=== PATIENT | female | born 1990 | race Caucasian/White ===

== ENCOUNTER 2017-01-06 09:00 | Inpatient (IN) | payer OTHER ==
[~2017-01-06] VITALS: Ht 152.4 cm; Wt 63.6 kg
[2017-01-06 09:42] VITALS: BP 103/64; PULSE 99; RESP 16; Ht 152.4 cm; Wt 63.6 kg
--- NOTE | 2017-01-06 11:53 | TRIAGE ---
OB Triage Datetime Report Generated by CPN: 01/06/2017 11:53 Datetime: 01/06/2017 10:30 Labor Evaluation Frequency: irreg Monitor Mode: External Duration (sec)2399: 40-120 Quality: Mild Pattern: Normal: <= 5 Contractions in 10 Minutes Resting Tone [place]: Relaxed Heart Rate FHR Baseline Rate: 145 Monitor Mode: External US Variability: Moderate 6-25 bpm Accelerations: 15X15 Decelerations: None Category: Category I Pain Assessment Pain Scale: 2 Pain Presence: Intermittent Pain Type: Contraction Pain Location: Abdomen Pain Goal: 3 Datetime: 01/06/2017 09:41 Maternal Assessment Level of Consciousness: Fully Conscious DTR's/Clonus: DTRs 2+; No Clonus Headache: Denies Blurred Vision: No Respiratory Effort: Unlabored; Regular Rhythm; Equal Expansion Breath Sounds, Left: Clear and Equal Breath Sounds, Right: Clear and Equal Nausea/Vomiting: Denies RUQ Epigastric Pain: Denies Lower Extremities Edema: None Degree: None Upper Extremities Edema: None Degree: None Facial Edema: None Fall Risk Assessment History of Falling: (0) No Secondary Diagnosis: (0) No Ambulatory Aid: (0) Bedrest/Nurse Assist IV Therapy: (0) No Gait: (0) Normal/Bedrest/Immobile Mental Status: (0) Oriented to Own Ability Fall Score: 0 Fall Risk Score Definition: No Risk: No action required Datetime: 01/06/2017 09:36 Time of Arrival: 01/06/2017 09:14 EGA: 40.3 Arrived By: Ambulatory Arrived From: Home Chief Complaint: Movement: Present Contractions: Irregular Rupture of Membranes: Denies Vaginal Bleeding: None Vaginal Discharge: Denies Recent Sexual Intercouse: Denies Abdominal Trauma: Not Applicable Patient Complaints: None Time Provider Notified: 01/06/2017 09:25 Provider Notified: Initial Plan: maikelt
[2017-01-06] MEDS ORDERED: BUTORPHANOL 2 MG INJ IV PRN (12:00)
[2017-01-06] MEDS ORDERED: LIDOCAINE 1% (MPF) 30 ML INJ INJ PRN (12:00)
[2017-01-06] MEDS ORDERED: METHYLERGONOVINE 0.2 MG INJ IM PRN (12:00)
[2017-01-06] MEDS ORDERED: OXYTOCIN 30 UNITS/LR 500 ML IV PRN (12:00)
[2017-01-06] MEDS ORDERED: OXYTOCIN 30 UNITS/LR 500 ML IV SCH ×2 (12:00)
[2017-01-06] MEDS ORDERED: CARBOPROST 250 MCG INJ IM PRN (12:00)
[2017-01-06] MEDS ORDERED: MISOPROSTOL 200 MCG TAB PR PRN (12:00)
[2017-01-06] MEDS: LACTATED RINGER'S 1,000 ML IV SCH ×2 (12:13→20:06)
[2017-01-06] MEDS ORDERED: DINOPROSTONE 10 MG VAG SUPP VAG ONE (12:30)
[2017-01-06 12:42] LABS: ADD SCAN DIFF NO
[2017-01-06 12:46] LABS: ABNORMAL IP MESSAGE 1; HEMATOCRIT 36.9 % (37.0-47.0); HEMOGLOBIN 12.6 g/dl (12.0-16.0); MEAN CORPUSCULAR HEMOGLOBIN 32.4 pg (29.0-33.0); MEAN CORPUSCULAR HGB CONC 34.1 g/dl (32.0-37.0); MEAN CORPUSCULAR VOLUME 94.9 fl (82.0-101.0); MEAN PLATELET VOLUME 10.3 fl (7.4-10.4); PLATELET COUNT 175 10^3/UL (140-415); RED BLOOD COUNT 3.89 10^6/ul (4.20-5.40); RED CELL DISTRIBUTION WIDTH 12.8 % (11.5-14.5); WHITE BLOOD COUNT 8.9 10^3/ul (4.8-10.8)
[2017-01-06 12:59] LABS: INR 0.85; PROTIME 11.6 Sec (12.2-14.2); PT RATIO 0.9
[2017-01-06 13:00] LABS: PARTIAL THROMBOPLASTIN TIME 23.2 Sec (25.0-35.0)
[2017-01-06 13:48] LABS: LYMPHOCYTES # 1.2 10^3/ul (0.8-2.9); MONOCYTE # 0.7 10^3/ul (0.3-0.9); MYELOCYTES # 0.1; NEUTROPHIL # 6.6 10^3/ul (1.6-7.5)
[2017-01-06] MEDS ORDERED: LACTATED RINGER'S 1,000 ML IV PRN (14:00)
[2017-01-07] MEDS: LACTATED RINGER'S 1,000 ML IV SCH ×2 (03:35→09:31)
[2017-01-07] MEDS ORDERED: FENTAnyl 2MCG/ML-ROPIV 0.2% 100 ML ONE (08:21)
[2017-01-07] MEDS ORDERED: NALOXONE (0.4 MG/ML) INJ IV PRN ×2 (09:00)
[2017-01-07] MEDS ORDERED: DIPHENHYDRAMINE 50 MG INJ IV PRN ×2 (09:00)
[2017-01-07] MEDS ORDERED: FENTAnyl 2MCG/ML-ROPIV 0.2% 100 ML BAG EPI SCH ×2 (09:00)
[2017-01-07] MEDS ORDERED: ONDANSETRON 4 MG INJ IV PRN ×3 (09:00→18:30)
[2017-01-07] MEDS ORDERED: OXYTOCIN 30 UNITS/LR 500 ML IV SCH (09:00)
[2017-01-07] MEDS ORDERED: EPHEDrine SULFATE 50 MG/5 ML SYG IV PRN ×2 (09:00)
--- NOTE | 2017-01-07 16:29 | HP ---
Date/Time of Note Date/Time of Note DATE: 01/07/17 TIME: 16:17 OB - History Hx of Present Free Text/Dictation 26 years old white female 2 para/0 admitted to [facility] at 40 weeks and 3 days for induction of labor pelvic examination on admission cervix 1 cm dilated 50% effaced vertex at -3 station plan of Cervidil in induction was discussed with the patient also risks and complication patient agreed with induction This patient has been under the care of the [facility] and her was not complicated with gestational diabetes -induced hypertension or any other serious surgical or medical condition 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 Rubella: immune RPR/VDRL: Negative GBS Status: Negative HBsAG: Negative OB Admission Exam Vital Signs Vital Signs Vital Signs Date Time Temp Pulse Resp B/P Pulse Ox O2 Delivery O2 Flow Rate FiO2 01/06/17 09:42 98.1 99 16 103/64 Physical Exam HEENT: WNL Heart: Rhythm Normal Lungs: Clear, Equal Abdomen: WNL Extremities: Normal Reflexes: Normal Cervical Dilatation: 1cm Effacement: 50% Station: -3 Heart Rate: 130's Accelerations: Accelerations Present Decelerations: No Decelerations Varibility: Moderate Intensity: Mild Last 72 hours Lab Results CBC & BMP 01/06/17 12:18 OB Assessment/Plan Reason for admission: other (40 weeks 3 days 2 para1 admitted for induction of labor `) Plan: Induction RUTHY BARBOSA MD Jan 07, 2017 16:28
--- NOTE | 2017-01-07 16:34 | LDN ---
Date/Time of Note Date/Time of Note DATE: 01/07/17 TIME: 16:29 Delivery Summary Normal spontaneous vaginal delivery of a baby from OA position shoulders delivered without any difficulties rest of the baby's body followed baby had nuchal cord ,cord clamped after stopped pulsation placenta spontaneous expulsion inspected complete,. Weeks of Gestation 40 weeks 3 Placenta Delivered: Spontaneously Meconium: none Episiotomy: No Perineal laceration: 1 Laceration repair: Left paraurethral laceration, first-degree perineal laceration both repaired with 3-0 chromic catgut Anesthesia type: Epidural Estimated blood loss: 250 Sponge & Needle done & correct: Yes All needle counts correct: Yes Any foreign bodies felt in the: No Problems: Delivery Information Sex Sex: female Apgars 1 Minute: 8 5 Minute: 9 Suctioning Nose & mouth suctioned at donovan: Yes Delee suction performed: No Umbilical Cord Umbilical cord with: 3 Vessels Cord presentations: nuchal cord Cord Blood was obtained: Yes RUTHY BARBOSA MD Jan 07, 2017 16:34
[2017-01-07] MEDS ORDERED: IBUPROFEN 600 MG TAB PO ONE (17:00)
[2017-01-07] MEDS ORDERED: LACTATED RINGER'S 1,000 ML IV* SCH (17:48)
[2017-01-07] MEDS ORDERED: OXYTOCIN 30 UNITS/LR 500 ML IV PRN ×2 (18:00→18:30)
[2017-01-07] MEDS ORDERED: CARBOPROST 250 MCG INJ IM PRN ×2 (18:00→18:30)
[2017-01-07] MEDS ORDERED: METHYLERGONOVINE 0.2 MG INJ IM PRN ×2 (18:00→18:30)
[2017-01-07] MEDS ORDERED: MISOPROSTOL 200 MCG TAB PR PRN ×2 (18:00→18:30)
[2017-01-07] MEDS: LACTATED RINGER'S 1,000 ML IV* SCH (18:08)
[2017-01-07] MEDS: OXYTOCIN 30 UNITS/LR 500 ML IV SCH ×2 (18:08→22:08)
[2017-01-07 18:25] VITALS: BP 120/70; PULSE 70; RESP 19
[2017-01-07] MEDS ORDERED: DIBUCAINE 1% 30 GM OINT PR PRN (18:30)
[2017-01-07] MEDS ORDERED: ACETAMINOPHEN/CODEINE #3 TAB PO PRN ×2 (18:30)
[2017-01-07] MEDS ORDERED: ACETAMINOPHEN 325 MG TAB PO PRN (18:30)
[2017-01-07] MEDS: WITCH HAZEL/GLYCERIN PAD PR PRN (18:37)
[2017-01-07] MEDS: BENZOCAINE 20% 56 ML SPRAY TOP PRN (18:37)
[2017-01-07] MEDS: LANOLIN 7 GM TUBE TOP PRN (18:37)
[2017-01-07 20:00] VITALS: BP 110/67; PULSE 70; RESP 18
[2017-01-07] MEDS: SENNA/DOCUSATE NA (8.6MG/50MG) TAB PO SCH (21:00)
[2017-01-08] MEDS: OXYCODONE/ASPIRIN (4.88/325) TAB PO PRN ×4 (01:37→17:56)
[2017-01-08] MEDS: LACTATED RINGER'S 1,000 ML IV* SCH (02:08)
[2017-01-08] MEDS: IBUPROFEN 600 MG TAB PO SCH ×4 (05:52→19:26)
[2017-01-08 07:23] LABS: ADD SCAN DIFF NO
[2017-01-08 07:32] LABS: BASOPHIL # 0.1 10^3/ul (0.0-0.1); BASOPHILS % 0.5 % (0.0-2.0); EOSINOPHILS # 0.2 10^3/ul (0.0-0.5); EOSINOPHILS % 1.9 % (0.0-7.0); HEMATOCRIT 31.8 % (37.0-47.0); HEMOGLOBIN 10.7 g/dl (12.0-16.0); LYMPHOCYTES # 1.9 10^3/ul (0.8-2.9); MEAN CORPUSCULAR HEMOGLOBIN 32.1 pg (29.0-33.0); MEAN CORPUSCULAR HGB CONC 33.6 g/dl (32.0-37.0); MEAN CORPUSCULAR VOLUME 95.5 fl (82.0-101.0); MEAN PLATELET VOLUME 10.6 fl (7.4-10.4); MONOCYTE # 0.7 10^3/ul (0.3-0.9); MONOCYTES % 7.1 % (0.0-11.0); PLATELET COUNT 139 10^3/UL (140-415); RED BLOOD COUNT 3.33 10^6/ul (4.20-5.40); RED CELL DISTRIBUTION WIDTH 12.8 % (11.5-14.5)
[2017-01-08 08:15] VITALS: BP 103/73; PULSE 65; RESP 18
[2017-01-08] MEDS: SENNA/DOCUSATE NA (8.6MG/50MG) TAB PO SCH ×2 (09:16→22:09)
[2017-01-08 16:00] VITALS: BP 97/62; PULSE 74; RESP 18
--- NOTE | 2017-01-08 18:05 | QN ---
Documentation Comment Post normal vaginal delivery day 1 Afebrile Vital signs are stable Abdomen soft Uterus firm Lochia normal Plan of a.m. discharge discussed with the patient Laboratory Tests Test 01/08/17 06:43 White Blood Count 10.010^3/ul Red Blood Count 3.3310^6/ul Hemoglobin 10.7g/dl Hematocrit 31.8% Mean Corpuscular Volume 95.5fl Mean Corpuscular Hemoglobin 32.1pg Mean Corpuscular Hemoglobin Concent 33.6g/dl Red Cell Distribution Width 12.8% Platelet Count 73544^3/UL Mean Platelet Volume 10.6fl Neutrophils % 70.0% Lymphocytes % 19.0% Monocytes % 7.1% Eosinophils % 1.9% Basophils % 0.5% Nucleated Red Blood Cells % 0.0/100WBC Neutrophils # 7.010^3/ul Lymphocytes # 1.910^3/ul Monocytes # 0.710^3/ul Eosinophils # 0.210^3/ul Basophils # 0.110^3/ul Nucleated Red Blood Cells # 0.010^3/ul Current Medications Medications (Trade) Dose Ordered Sig/Diane Route PRN Reason Start Time Stop Time Status Last Admin Dose Admin Lactated Ringer's (Lr) 1,000 ml @ 125 mls/hr Q8H IV 01/06/17 11:50 01/07/17 17:49 DC 01/07/17 09:31 Butorphanol Tartrate (Stadol) 2 mg Q2H PRN IV PAIN 01/06/17 12:00 01/07/17 17:49 DC 01/07/17 01:59 Lidocaine 30 ml 30 ml ONCE PRN INJ EPISIOTOMY/TEARING 01/06/17 12:00 01/07/17 17:49 DC Oxytocin/Lactated Ringer's 500 ml @ 125 mls/hr ONCE -MAY REPEAT X1 IV 01/06/17 12:00 01/07/17 17:49 DC 01/07/17 16:32 Oxytocin/Lactated Ringer's 500 ml @ 125 mls/hr ONCE IV 01/06/17 12:00 01/07/17 17:50 DC Lactated Ringer's 1,000 ml @ 2,000 mls/hr Q30M PRN IV PRE-EPIDURAL BOLUS 01/06/17 14:00 7/16/17 17:50 DC 01/07/17 08:32 Oxytocin/Lactated Ringer's 500 ml @ 0 mls/hr ONCE PRN IV For Hemorrhage Management 01/06/17 12:00 01/07/17 17:50 DC Methylergonovine Maleate (Methergine) 0.2 mg ONCE PRN IM VAGINAL BLEEDING 01/06/17 12:00 01/07/17 17:50 DC Carboprost Tromethamine (Hemabate) 250 mcg ONCE PRN IM VAGINAL BLEEDING 01/06/17 12:00 01/07/17 17:50 DC Misoprostol (Cytotec) 1,000 mcg ONCE PRN [place] VAGINAL BLEEDING 01/06/17 12:00 01/07/17 17:50 DC Dinoprostone 10 mg 10 mg ONCE ONCE VAG 01/06/17 12:30 01/06/17 12:31 DC 01/06/17 12:52 Fentanyl/ Ropivacaine 100 ml @ ud STK-MED ONCE .ROUTE 01/07/17 08:21 01/07/17 08:22 DC Oxytocin/Lactated Ringer's 500 ml @ 0 mls/hr TITRATE IV 01/07/17 09:00 01/07/17 17:50 DC 01/07/17 09:30 Naloxone HCl (Narcan) 0.1 mg Q2M PRN IV FOR RESP RATE 8 OR LESS 01/07/17 09:00 01/07/17 17:50 DC Diphenhydramine HCl (Benadryl) 25 mg Q6H PRN IV ITCHING 01/07/17 09:00 01/07/17 17:50 DC Ondansetron HCl (Zofran Inj) 4 mg Q6H PRN IV NAUSEA AND/OR VOMITING 01/07/17 09:00 01/07/17 17:50 DC Fentanyl/ Ropivacaine 100 ml EPIDURAL INFUSION EPI 01/07/17 09:00 01/07/17 17:50 DC Ephedrine Sulfate 5 mg PRN PRN IV BLOOD PRESSURE SUPPORT 01/07/17 09:00 01/07/17 17:50 DC Naloxone HCl (Narcan) 0.1 mg Q2M PRN IV FOR RESP RATE 8 OR LESS 01/07/17 09:00 01/08/17 08:59 UNV Diphenhydramine HCl (Benadryl) 25 mg Q6H PRN IV ITCHING 01/07/17 09:00 01/08/17 08:59 UNV Ondansetron HCl (Zofran Inj) 4 mg Q6H PRN IV NAUSEA AND/OR VOMITING 01/07/17 09:00 01/08/17 08:59 UNV Fentanyl/ Ropivacaine 100 ml EPIDURAL INFUSION EPI 01/07/17 09:00 UNV Ephedrine Sulfate 5 mg PRN PRN IV BLOOD PRESSURE SUPPORT 01/07/17 09:00 UNV Ibuprofen 600 mg 600 mg ONCE ONCE PO 01/07/17 17:00 01/07/17 17:06 DC 01/07/17 17:14 Lactated Ringer's 1,000 ml @ 125 mls/hr Q8H IV* 01/07/17 17:48 01/07/17 18:12 DC Oxytocin/Lactated Ringer's 500 ml @ 0 mls/hr ONCE PRN IV For Hemorrhage Management 01/07/17 18:00 01/07/17 18:12 DC Methylergonovine Maleate (Methergine) 0.2 mg ONCE PRN IM VAGINAL BLEEDING 01/07/17 18:00 01/07/17 18:12 DC Carboprost Tromethamine (Hemabate) 250 mcg ONCE PRN IM VAGINAL BLEEDING 01/07/17 18:00 01/07/17 18:12 DC Misoprostol 1000 mcg 1,000 mcg ONCE PRN [place] VAGINAL BLEEDING 01/07/17 18:00 01/07/17 18:12 DC Lactated Ringer's 1,000 ml @ 125 mls/hr Q8H IV* 01/07/17 18:08 Oxytocin/Lactated Ringer's 500 ml @ 0 mls/hr ONCE PRN IV For Hemorrhage Management 01/07/17 18:30 Methylergonovine Maleate (Methergine) 0.2 mg ONCE PRN IM VAGINAL BLEEDING 01/07/17 18:30 Carboprost Tromethamine (Hemabate) 250 mcg ONCE PRN IM VAGINAL BLEEDING 01/07/17 18:30 Misoprostol 1000 mcg 1,000 mcg ONCE PRN [place] VAGINAL BLEEDING 01/07/17 18:30 Oxytocin/Lactated Ringer's 500 ml @ 125 mls/hr Q4H IV 01/07/17 18:08 01/08/17 02:07 DC Ibuprofen (Motrin) 600 mg Q6 PO 01/08/17 00:00 01/08/17 13:13 Acetaminophen (Tylenol Tab) 650 mg Q4H PRN PO PAIN LEVEL 1-5 01/07/17 18:30 Acetaminophen/ Codeine Phosphate (Tylenol No.3) 1 tab Q4H PRN PO PAIN LEVEL 1-5 01/07/17 18:30 Acetaminophen/ Codeine Phosphate (Tylenol No.3) 2 tab Q4H PRN PO PAIN LEVEL 6-10 01/07/17 18:30 01/07/17 18:36 Oxycodone/Aspirin (Percodan) 1 tab Q3H PRN PO PAIN LEVEL 1-5 01/07/17 18:30 01/08/17 08:04 Oxycodone/Aspirin (Percodan) 2 tab Q3H PRN PO PAIN LEVEL 6-10 01/07/17 18:30 01/08/17 17:56 Ondansetron HCl (Zofran Inj) 4 mg Q6H PRN IV NAUSEA AND/OR VOMITING 01/07/17 18:30 Senna/Docusate Sodium (Senokot-S) 1 tab BID PO 01/07/17 21:00 01/08/17 09:16 Witch Karuna/ Glycerin (Tucks Pads) 1 pad BEDSIDE MEDICATION PRN [place] HEMORRHOID/EPISIOTMY PAIN 01/07/17 18:30 01/07/17 18:37 Benzocaine (Dermoplast [place]) 1 spray BEDSIDE MEDICATION PRN TOP HEMORRHOID/EPISIOTMY PAIN 01/07/17 18:30 01/07/17 18:37 Dibucaine (Nupercainal) 1 applic BEDSIDE MEDICATION PRN [place] HEMORRHOID/EPISIOTMY PAIN 01/07/17 18:30 Lanolin (Zbc-G-Pvybiv) 1 applic BEDSIDE MEDICATION PRN TOP BEDSIDE FOR GAYLE TO NIPPLES 01/07/17 18:30 01/07/17 18:37 Measles/Mumps/ Rubella Vaccine Live (Mmr Ii Vaccine) 0.5 ml ONCE ONCE SC* 01/09/17 09:00 01/09/17 09:01 RUTHY BARBOSA MD Jan 08, 2017 18:04
[2017-01-08 19:45] VITALS: BP 107/61; PULSE 71; RESP 18
[2017-01-09] MEDS: OXYCODONE/ASPIRIN (4.88/325) TAB PO PRN ×3 (00:09→14:44)
[2017-01-09 04:00] VITALS: BP 96/58; PULSE 64; RESP 20
[2017-01-09] MEDS: IBUPROFEN 600 MG TAB PO SCH ×3 (06:00→12:20)
[2017-01-09] MEDS: SENNA/DOCUSATE NA (8.6MG/50MG) TAB PO SCH (08:17)
[2017-01-09 08:18] VITALS: BP 113/70; PULSE 72; RESP 18
[2017-01-09] MEDS ORDERED: MEASLES,MUMPS,RUBELLA VACCINE INJ SC* ONE (09:00)
--- NOTE | 2017-01-09 11:20 | DS ---
Date/Time of Note Date/Time of Note DATE: 01/09/17 TIME: 11:16 Post delivery day 2 Doing Well Afebrile Ambulatory Chest Clear Breasts are soft , Nipples are intact Abdomen is soft Fundus is firm Moderate amount of lochia Incision is clean ,No evidence of infection No calf tenderness No ankle edema New born is doing well, Breast feeding Obstetrical Discharge Record Final Diagnosis Final Diagnosis: Term delivered Vaginal Delivery Obstetrical Delivery: Spontaneous Condition on Discharge Physical Assessment Voiding: Yes Bowel Movement: Yes Breast: Soft, non-tender Fundus: Firm Abdomen and Incision: Current Medications Medications (Trade) Dose Ordered Sig/Diane Route PRN Reason Start Time Stop Time Status Last Admin Dose Admin Lactated Ringer's (Lr) 1,000 ml @ 125 mls/hr Q8H IV 01/06/17 11:50 01/07/17 17:49 DC 01/07/17 09:31 Butorphanol Tartrate (Stadol) 2 mg Q2H PRN IV PAIN 01/06/17 12:00 01/07/17 17:49 DC 01/07/17 01:59 Lidocaine 30 ml 30 ml ONCE PRN INJ EPISIOTOMY/TEARING 01/06/17 12:00 01/07/17 17:49 DC Oxytocin/Lactated Ringer's 500 ml @ 125 mls/hr ONCE -MAY REPEAT X1 IV 01/06/17 12:00 01/07/17 17:49 DC 01/07/17 16:32 Oxytocin/Lactated Ringer's 500 ml @ 125 mls/hr ONCE IV 01/06/17 12:00 01/07/17 17:50 DC Lactated Ringer's 1,000 ml @ 2,000 mls/hr Q30M PRN IV PRE-EPIDURAL BOLUS 01/06/17 14:00 01/07/17 17:50 DC 01/07/17 08:32 Oxytocin/Lactated Ringer's 500 ml @ 0 mls/hr ONCE PRN IV For Hemorrhage Management 01/06/17 12:00 01/07/17 17:50 DC Methylergonovine Maleate (Methergine) 0.2 mg ONCE PRN IM VAGINAL BLEEDING 01/06/17 12:00 01/07/17 17:50 DC Carboprost Tromethamine (Hemabate) 250 mcg ONCE PRN IM VAGINAL BLEEDING 01/06/17 12:00 01/07/17 17:50 DC Misoprostol (Cytotec) 1,000 mcg ONCE PRN [place] VAGINAL BLEEDING 01/06/17 12:00 01/07/17 17:50 DC Dinoprostone 10 mg 10 mg ONCE ONCE VAG 01/06/17 12:30 01/06/17 12:31 DC 01/06/17 12:52 Fentanyl/ Ropivacaine 100 ml @ STK-MED ONCE .ROUTE 01/07/17 08:21 01/07/17 08:22 DC Oxytocin/Lactated Ringer's 500 ml @ 0 mls/hr TITRATE IV 01/07/17 09:00 01/07/17 17:50 DC 01/07/17 09:30 Naloxone HCl (Narcan) 0.1 mg Q2M PRN IV FOR RESP RATE 8 OR LESS 01/07/17 09:00 01/07/17 17:50 DC Diphenhydramine HCl (Benadryl) 25 mg Q6H PRN IV ITCHING 01/07/17 09:00 01/07/17 17:50 DC Ondansetron HCl (Zofran Inj) 4 mg Q6H PRN IV NAUSEA AND/OR VOMITING 01/07/17 09:00 01/07/17 17:50 DC Fentanyl/ Ropivacaine 100 ml EPIDURAL INFUSION EPI 01/07/17 09:00 01/07/17 17:50 DC Ephedrine Sulfate 5 mg PRN PRN IV BLOOD PRESSURE SUPPORT 01/07/17 09:00 01/07/17 17:50 DC Naloxone HCl (Narcan) 0.1 mg Q2M PRN IV FOR RESP RATE 8 OR LESS 01/07/17 09:00 01/08/17 08:59 UNV Diphenhydramine HCl (Benadryl) 25 mg Q6H PRN IV ITCHING 01/07/17 09:00 01/08/17 08:59 UNV Ondansetron HCl (Zofran Inj) 4 mg Q6H PRN IV NAUSEA AND/OR VOMITING 01/07/17 09:00 01/08/17 08:59 UNV Fentanyl/ Ropivacaine 100 ml EPIDURAL INFUSION EPI 01/07/17 09:00 UNV Ephedrine Sulfate 5 mg PRN PRN IV BLOOD PRESSURE SUPPORT 01/07/17 09:00 UNV Ibuprofen 600 mg 600 mg ONCE ONCE PO 01/07/17 17:00 01/07/17 17:06 DC 01/07/17 17:14 Lactated Ringer's 1,000 ml @ 125 mls/hr Q8H IV* 01/07/17 17:48 01/07/17 18:12 DC Oxytocin/Lactated Ringer's 500 ml @ 0 mls/hr ONCE PRN IV For Hemorrhage Management 01/07/17 18:00 01/07/17 18:12 DC Methylergonovine Maleate (Methergine) 0.2 mg ONCE PRN IM VAGINAL BLEEDING 01/07/17 18:00 01/07/17 18:12 DC Carboprost Tromethamine (Hemabate) 250 mcg ONCE PRN IM VAGINAL BLEEDING 01/07/17 18:00 01/07/17 18:12 DC Misoprostol 1000 mcg 1,000 mcg ONCE PRN [place] VAGINAL BLEEDING 01/07/17 18:00 01/07/17 18:12 DC Lactated Ringer's 1,000 ml @ 125 mls/hr Q8H IV* 01/07/17 18:08 Oxytocin/Lactated Ringer's 500 ml @ 0 mls/hr ONCE PRN IV For Hemorrhage Management 01/07/17 18:30 Methylergonovine Maleate (Methergine) 0.2 mg ONCE PRN IM VAGINAL BLEEDING 01/07/17 18:30 Carboprost Tromethamine (Hemabate) 250 mcg ONCE PRN IM VAGINAL BLEEDING 01/07/17 18:30 Misoprostol 1000 mcg 1,000 mcg ONCE PRN [place] VAGINAL BLEEDING 01/07/17 18:30 Oxytocin/Lactated Ringer's 500 ml @ 125 mls/hr Q4H IV 01/07/17 18:08 01/08/17 02:07 DC Ibuprofen (Motrin) 600 mg Q6 PO 01/08/17 00:00 01/08/17 19:26 Acetaminophen (Tylenol Tab) 650 mg Q4H PRN PO PAIN LEVEL 1-5 01/07/17 18:30 Acetaminophen/ Codeine Phosphate (Tylenol No.3) 1 tab Q4H PRN PO PAIN LEVEL 1-5 01/07/17 18:30 Acetaminophen/ Codeine Phosphate (Tylenol No.3) 2 tab Q4H PRN PO PAIN LEVEL 6-10 01/07/17 18:30 01/07/17 18:36 Oxycodone/Aspirin (Percodan) 1 tab Q3H PRN PO PAIN LEVEL 1-5 01/07/17 18:30 01/09/17 00:09 Oxycodone/Aspirin (Percodan) 2 tab Q3H PRN PO PAIN LEVEL 6-10 01/07/17 18:30 01/09/17 08:18 Ondansetron HCl (Zofran Inj) 4 mg Q6H PRN IV NAUSEA AND/OR VOMITING 01/07/17 18:30 Senna/Docusate Sodium (Senokot-S) 1 tab BID PO 01/07/17 21:00 01/09/17 08:17 Witch Karuna/ Glycerin (Tucks Pads) 1 pad BEDSIDE MEDICATION PRN [place] HEMORRHOID/EPISIOTMY PAIN 01/07/17 18:30 01/07/17 18:37 Benzocaine (Dermoplast [place]) 1 spray BEDSIDE MEDICATION PRN TOP HEMORRHOID/EPISIOTMY PAIN 01/07/17 18:30 01/07/17 18:37 Dibucaine (Nupercainal) 1 applic BEDSIDE MEDICATION PRN [place] HEMORRHOID/EPISIOTMY PAIN 01/07/17 18:30 Lanolin (Iup-Q-Uurtll) 1 applic BEDSIDE MEDICATION PRN TOP BEDSIDE FOR GAYLE TO NIPPLES 01/07/17 18:30 01/07/17 18:37 Measles/Mumps/ Rubella Vaccine Live (Mmr Ii Vaccine) 0.5 ml ONCE ONCE SC* 01/09/17 09:00 01/09/17 09:01 DC Episiotomy: laceration healing Calf Tenderness: No Patient Condition: Good RAJANI REAL MD Jan 09, 2017 11:20
[2017-01-09] MEDS: LANOLIN 7 GM TUBE TOP PRN (11:23)
[2017-01-09] MEDS: BENZOCAINE 20% 56 ML SPRAY TOP PRN (11:23)
[2017-01-09] MEDS: WITCH HAZEL/GLYCERIN PAD PR PRN (11:23)
== END 2017-01-09 17:26 | disposition home or self-care (01) | DRG 775 ==
LOC: L-D 09:14 → PP1 01-07 18:32
PROVIDERS: ADMIT Obstetrics & Gynecology; ATTEND Obstetrics & Gynecology
PROC: 4A1HX4Z Monitoring of Products of Conception, Cardiac Electrical Activity, External Approach (ICD-10-PCS; 2017-01-06)
PROC: 3E0P7GC Introduction of Other Therapeutic Substance into Female Reproductive, Via Natural or Artificial Opening (ICD-10-PCS; 2017-01-06)
PROC: 10E0XZZ Delivery of Products of Conception, External Approach (ICD-10-PCS; principal; 2017-01-07)
PROC: 0UQMXZZ Repair Vulva, External Approach (ICD-10-PCS; 2017-01-07)
PROC: 0HQ9XZZ Repair Perineum Skin, External Approach (ICD-10-PCS; 2017-01-07)
DX: O48.0 Post-term pregnancy (principal); O70.0 First degree perineal laceration during delivery; Z3A.40 40 weeks gestation of pregnancy; Z37.0 Single live birth; O71.82 Other specified trauma to perineum and vulva
CPT/HCPCS: 84703; 85025; 85610; 85730; 86592; 86900; 86901; 87340; J0595; J2590; J3010; J7120